=== PATIENT | male | born 1950 | race African-American/Black ===

== ENCOUNTER 2017-04-01 09:09 | Emergency (ER) | payer OTHER ==
[~2017-04-01] VITALS: Ht 170.2 cm; Wt 96.0 kg
[2017-04-01] MEDS ORDERED: IPRATROPIUM BROMIDE (0.02%) 0.5MG/2.5ML NEB HHN STA (09:57)
[2017-04-01] MEDS ORDERED: ALBUTEROL (0.083%) 2.5MG/3ML NEB HHN STA (09:57)
[2017-04-01] MEDS ORDERED: METHYLPREDNISOLONE SOD SUCC 125 MG/2 ML VIAL IV STA (09:57)
[2017-04-01 10:25] LABS: BASOPHILS % 0.5 % (0.0-2.0); EOSINOPHILS % 3.6 % (0.0-5.0); HEMATOCRIT. 37.9 % (42.0-52.0); HEMOGLOBIN. 12.6 g/dL (14.0-18.0); LYMPHOCYTES % 11.6 % (20.0-50.0); MEAN CORPUSCULAR VOLUME 90.2 fL (80.0-94.0); MEAN PLATELET VOLUME 6.7 fl (7.4-10.4); MONOCYTES % 8.8 % (2.0-8.0); NEUTROPHILS % 75.5 % (40.0-76.0); PLATELET 229 x1000/uL (130-400)
[2017-04-01 10:45] LABS: CARBON DIOXIDE 28 mEq/L (21-32); CHLORIDE 105 mEq/L (98-107); TROPONIN I < 0.02 ng/mL (0.00-0.04)
[2017-04-01 12:07] VITALS: BP 133/74
== END 2017-04-01 12:11 | disposition home or self-care (01) ==
LOC: ER 09:30
DX: J44.1 Chronic obstructive pulmonary disease with (acute) exacerbation (principal); I10 Essential (primary) hypertension; E11.9 Type 2 diabetes mellitus without complications
CPT/HCPCS: 36415; 71045; 80053; 83605; 83880; 84484; 85025; 94644; 94645; 96374; 99285; J2930; J7611

== ENCOUNTER 2017-09-16 04:10 | Inpatient (IN) | payer OTHER ==
[~2017-09-16] VITALS: Ht 182.9 cm; Wt 112.9 kg
[2017-09-16] MEDS ORDERED: ALBUTEROL (0.083%) 2.5MG/3ML NEB HHN STA (04:58)
[2017-09-16] MEDS ORDERED: METHYLPREDNISOLONE SOD SUCC 125 MG/2 ML VIAL IV STA (04:58)
[2017-09-16] MEDS ORDERED: IPRATROPIUM BROMIDE (0.02%) 0.5MG/2.5ML NEB HHN STA (04:58)
[2017-09-16] MEDS ORDERED: MAGNESIUM 2 G PREMIX 50 ML IV ONE (05:00)
[2017-09-16] MEDS ORDERED: AZITHROMYCIN 500 MG in DEXT 5% WATER 250 ML IV ONE (05:00)
[2017-09-16] MEDS ORDERED: CEFTRIAXONE 1 G PREMIX 50 ML IV ONE (05:00)
[2017-09-16] MEDS ORDERED: IPRATROPIUM BROMIDE (0.02%) 0.5MG/2.5ML NEB ONE (05:09)
[2017-09-16] MEDS ORDERED: ALBUTEROL (0.083%) 2.5MG/3ML NEB ONE (05:09)
[2017-09-16 05:39] LABS: BASOPHILS % 0.4 % (0.0-2.0); EOSINOPHILS % 0.1 % (0.0-5.0); HEMATOCRIT. 40.4 % (42.0-52.0); HEMOGLOBIN. 13.5 g/dL (14.0-18.0); LYMPHOCYTES % 10.1 % (20.0-50.0); MEAN CORPUSCULAR HEMOGLOBIN 29.4 pg (28.0-32.0); MEAN CORPUSCULAR VOLUME 88.1 fL (80.0-94.0); MEAN PLATELET VOLUME 7.3 fl (7.4-10.4); NEUTROPHILS % 76.4 % (40.0-76.0); PLATELET 193 x1000/uL (130-400); RED BLOOD CELL COUNT 4.59 mill/uL (4.7-6.1); RED CELL DISTRIBUTION WIDTH 14.5 % (11.6-14.6)
[2017-09-16 05:46] LABS: CHLORIDE 104 mEq/L (98-107)
[2017-09-16 05:58] LABS: BG CARBOXYHEMOGLOBIN 0.9 % (0.5-1.5); BG DEOXYHEMOGLOBIN 0.6 % (0.0-5.0); BG FRACTION INSPIRED OXYGEN 60; BG HCO3 ACT 25.6 mmol/L (22.0-26.0); BG METHEMOGLOBIN 0.2 % (0.0-1.5); BG OXYGEN SATURATION 99.4 % (92.0-98.5); BG OXYHEMOGLOBIN 98.3 % (94.0-97.0); BG PCO2 45.3 mmHg (35.0-45.0); BG PO2 174.4 mmHg (75.0-100.0); BG SAMPLE SITE RIGHT RADIAL; BG TOTAL HEMOGLOBIN 13.8 g/dL (12.0-18.0)
[2017-09-16] MEDS ORDERED: SODIUM CHLORIDE 0.9% 1,000 ML IV SCH (06:23)
[2017-09-16] MEDS ORDERED: CLONIDINE 0.1MG TABLET PO PRN (08:30)
[2017-09-16] MEDS ORDERED: DIPHENHYDRAMINE 50MG/ML VIAL IV PRN (08:30)
[2017-09-16] MEDS ORDERED: ACETAMINOPHEN 325MG TABLET PO PRN (08:30)
[2017-09-16] MEDS ORDERED: LORAZEPAM 0.5MG TABLET PO PRN (08:30)
[2017-09-16] MEDS ORDERED: IPRATROPIUM/ALBUTEROL 0.5-3(2.5)MG/3ML NEB INH PRN (08:30)
[2017-09-16] MEDS ORDERED: NA PHOS,M-B/NA PHOS,DI-BA ENEMA 118ML PR PRN (08:30)
[2017-09-16] MEDS ORDERED: ONDANSETRON HCL 4MG/2ML VIAL IV PRN (08:30)
[2017-09-16] MEDS ORDERED: DOCUSATE SODIUM 100MG CAPSULE PO PRN (08:30)
[2017-09-16] MEDS ORDERED: GUAIFENESIN 200MG/10ML SUGAR FREE UDC PO PRN (08:30)
[2017-09-16] MEDS ORDERED: NITROGLYCERIN 0.4MG TABLET SL SL PRN (08:30)
[2017-09-16] MEDS ORDERED: MAGNESIUM/ALUMINUM HYDROXIDE/SIMETHICONE 30ML UDC PO PRN (08:30)
[2017-09-16] MEDS ORDERED: TRAMADOL 50MG TABLET PO PRN (08:30)
[2017-09-16] MEDS ORDERED: ENOXAPARIN 40MG/0.4ML SYR SUBCUT SCH (09:00)
[2017-09-16] MEDS ORDERED: LEVOFLOXACIN 500MG PREMIX 100 ML IV SCH (10:00)
[2017-09-16 10:10] VITALS: BP 146/78
[2017-09-16] MEDS: FAMOTIDINE 20MG TABLET PO SCH ×2 (11:30→21:47)
[2017-09-16] MEDS: DILTIAZEM HCL 30MG TABLET PO SCH ×3 (11:30→21:48)
[2017-09-16] MEDS: GUAIFENESIN 600MG ER TABLET PO SCH ×2 (11:30→21:47)
[2017-09-16] MEDS: ASPIRIN 325MG EC TABLET PO SCH (11:31)
[2017-09-16] MEDS: IPRATROPIUM/ALBUTEROL 0.5-3(2.5)MG/3ML NEB HHN SCH ×3 (12:47→22:25)
[2017-09-16] MEDS: LEVOFLOXACIN 500MG PREMIX 100 ML IV SCH (13:54)
[2017-09-16] MEDS: METHYLPREDNISOLONE SOD SUCC 125 MG/2 ML VIAL IV SCH ×2 (13:54→21:49)
[2017-09-16 15:12] LABS: CREATINE KINASE 292 IU/L (39-308)
[2017-09-16 15:13] LABS: CREATINE KINASE MB FRACTION 4.9 ng/mL (0.5-3.6)
[2017-09-16 16:00] VITALS: BP 144/86
[2017-09-16] MEDS: BLOOD SUGAR DIAGNOSTIC STRIP TEST SCH ×2 (16:45→21:49)
[2017-09-16] MEDS ORDERED: DEXTROSE 50% WATER 50ML SYRINGE IV PRN (16:45)
[2017-09-16] MEDS: INSULIN LISPRO 100 UNITS/ML SUBCUT SCH ×2 (18:14→21:53)
[2017-09-16 20:00] VITALS: BP 162/88
[2017-09-16] MEDS ORDERED: ZOLPIDEM TARTRATE 5MG TABLET PO PRN (21:00)
[2017-09-16] MEDS: ENOXAPARIN 30MG/0.3ML SYR SUBCUT SCH (21:56)
[2017-09-16 23:06] LABS: METHADONE URINE SCREEN NEGATIVE (NEGATIVE)
[2017-09-16 23:07] LABS: *AMPHETAMINES SCREEN URINE NEGATIVE (NEGATIVE); *BARBITURATES SCREEN URINE NEGATIVE (NEGATIVE); *BENZODIAZEPINES SCREEN URINE NEGATIVE (NEGATIVE); *COCAINE SCREEN URINE NEGATIVE (NEGATIVE); CANNABINOID URINE SCREEN NEGATIVE (NEGATIVE); OPIATES URINE SCREEN PRESUMTIVE POSITIVE (NEGATIVE); PHENCYCLIDINE URINE SCREEN NEGATIVE (NEGATIVE)
[2017-09-16 23:34] LABS: CREATINE KINASE 302 IU/L (39-308)
[2017-09-16 23:35] LABS: CREATINE KINASE MB FRACTION 5.7 ng/mL (0.5-3.6)
[2017-09-17] VITALS (7 sets, daily range): BP systolic 120–147; BP diastolic 74–86
[2017-09-17] MEDS: IPRATROPIUM/ALBUTEROL 0.5-3(2.5)MG/3ML NEB HHN SCH ×6 (00:24→20:34)
[2017-09-17] MEDS: METHYLPREDNISOLONE SOD SUCC 125 MG/2 ML VIAL IV SCH ×2 (07:00→13:34)
[2017-09-17] MEDS: BLOOD SUGAR DIAGNOSTIC STRIP TEST SCH ×3 (07:00→17:18)
[2017-09-17] MEDS: INSULIN LISPRO 100 UNITS/ML SUBCUT SCH ×3 (07:00→17:23)
[2017-09-17] MEDS: DILTIAZEM HCL 30MG TABLET PO SCH ×2 (07:01→13:34)
[2017-09-17] MEDS: FAMOTIDINE 20MG TABLET PO SCH (08:21)
[2017-09-17] MEDS: GUAIFENESIN 600MG ER TABLET PO SCH (08:21)
[2017-09-17] MEDS: ASPIRIN 325MG EC TABLET PO SCH (08:21)
[2017-09-17] MEDS: ENOXAPARIN 30MG/0.3ML SYR SUBCUT SCH (08:22)
[2017-09-17] MEDS ORDERED: ENOXAPARIN 80MG/0.8ML SYR SUBCUT NR (13:15)
[2017-09-17] MEDS: LEVOFLOXACIN 500MG PREMIX 100 ML IV SCH (13:34)
[2017-09-17] MEDS ORDERED: ENOXAPARIN 100MG/ML SYR SUBCUT SCH ×2 (21:00→22:00)
== END 2017-09-17 21:18 | disposition short-term general hospital (02) | DRG 189 ==
LOC: ER 04:10 → 6WST 04:11 → EDBEDREQ 06:24 → EDBEDREQTM 06:36 → ENRESERV 07:31 → 5WST 09:34
PROVIDERS: ADMIT Internal Medicine; ATTEND Internal Medicine
DX: J96.00 Acute respiratory failure, unspecified whether with hypoxia or hypercapnia (principal); J44.1 Chronic obstructive pulmonary disease with (acute) exacerbation; E66.9 Obesity, unspecified; K21.9 Gastro-esophageal reflux disease without esophagitis; D64.9 Anemia, unspecified; E11.9 Type 2 diabetes mellitus without complications; Z68.33 Body mass index [BMI] 33.0-33.9, adult
CPT/HCPCS: 36415; 36600; 71045; 80053; 80061; 80305; 82375; 82550; 82553; 82805; 82962; 83036; 83605; 83880; 84484; 85025; 85379; 87040; 93005; 93306; 93970; 94640; 94644; 96365; 96366; 96367; 96368; 96375; 99291; J0456; J0696; J1650; J1815; J1956; J2930; J3475; J7030; J7050; J7060; J7611; J7620

== ENCOUNTER 2017-09-22 09:51 | Emergency (ER) | payer OTHER ==
[~2017-09-22] VITALS: Ht 182.9 cm; Wt 125.0 kg
[2017-09-22] MEDS ORDERED: IPRATROPIUM BROMIDE (0.02%) 0.5MG/2.5ML NEB HHN STA (10:11)
[2017-09-22] MEDS ORDERED: ALBUTEROL (0.083%) 2.5MG/3ML NEB HHN ONE (10:15)
[2017-09-22 11:55] VITALS: BP 139/78
== END 2017-09-22 12:30 | disposition home or self-care (01) ==
LOC: ER 09:51
DX: J44.1 Chronic obstructive pulmonary disease with (acute) exacerbation (principal); E11.9 Type 2 diabetes mellitus without complications; Z87.01 Personal history of pneumonia (recurrent)
CPT/HCPCS: 71045; 82962; 94640; 99283; J7611; Z7610

== ENCOUNTER 2018-04-17 14:11 | Emergency (ER) | payer OTHER ==
[~2018-04-17] VITALS: Ht 182.9 cm; Wt 113.0 kg
[2018-04-17] MEDS ORDERED: SODIUM CHLORIDE 0.9% 1,000 ML IV ONE (15:25)
[2018-04-17] MEDS ORDERED: FAMOTIDINE 20MG/2ML VIAL IV STA (15:25)
[2018-04-17] MEDS ORDERED: MAGNESIUM/ALUMINUM HYDROXIDE/SIMETHICONE 30ML UDC PO STA (15:25)
[2018-04-17] MEDS ORDERED: VISCOUS LIDOCAINE 2% 15 ML UDC PO STA (15:25)
[2018-04-17] MEDS ORDERED: ONDANSETRON HCL 4MG/2ML INJ IV STA (15:25)
[2018-04-17 16:28] LABS: CHLORIDE 106 mEq/L (98-107)
[2018-04-17 16:30] LABS: INR 1.1; PROTHROMBIN TIME 10.7 sec (9.1-11.1)
[2018-04-17 16:31] LABS: BASOPHILS % 0.5 % (0.0-2.0); EOSINOPHILS % 2.8 % (0.0-5.0); HEMATOCRIT. 42.7 % (42.0-52.0); HEMOGLOBIN. 13.9 g/dL (14.0-18.0); LYMPHOCYTES % 13.7 % (20.0-50.0); MEAN CORPUSCULAR HEMOGLOBIN 29.6 pg (28.0-32.0); MEAN CORPUSCULAR VOLUME 90.7 fL (80.0-94.0); MEAN PLATELET VOLUME 7.6 fl (7.4-10.4); MONOCYTES % 7.5 % (2.0-8.0); NEUTROPHILS % 75.5 % (40.0-76.0); PLATELET 210 x1000/uL (130-400); RED CELL DISTRIBUTION WIDTH 14.5 % (11.6-14.6)
[2018-04-17] MEDS ORDERED: SORBITOL 70% SOLN 30ML PO ONE (19:00)
[2018-04-17 21:43] VITALS: BP 151/92
== END 2018-04-17 21:49 | disposition home or self-care (01) ==
LOC: ER 14:11
DX: K59.00 Constipation, unspecified (principal); K21.9 Gastro-esophageal reflux disease without esophagitis; J44.9 Chronic obstructive pulmonary disease, unspecified; E11.9 Type 2 diabetes mellitus without complications; Z98.890 Other specified postprocedural states
CPT/HCPCS: 36415; 74176; 80053; 82962; 83690; 83880; 84484; 85025; 85610; 96374; 96375; 99284; J2405; J3490; J7030; Z7610

== ENCOUNTER 2019-02-06 23:21 | Emergency (ER) | payer OTHER ==
[~2019-02-06] VITALS: Ht 182.9 cm; Wt 113.0 kg
[2019-02-07] MEDS ORDERED: PREDNISONE 20MG TABLET PO STA (00:25)
[2019-02-07] MEDS ORDERED: IPRATROPIUM/ALBUTEROL 0.5-3(2.5)MG/3ML NEB HHN ONE (00:30)
[2019-02-07] MEDS ORDERED: LEVOFLOXACIN 500MG TABLET PO ONE (00:30)
[2019-02-07 01:03] LABS: CHLORIDE 106 mEq/L (98-107)
[2019-02-07 01:05] LABS: BASOPHILS % 0.7 % (0.0-2.0); EOSINOPHILS % 3.4 % (0.0-5.0); HEMATOCRIT. 40.1 % (42.0-52.0); HEMOGLOBIN. 13.3 g/dL (14.0-18.0); LYMPHOCYTES % 15.4 % (20.0-50.0); MEAN CORPUSCULAR HEMOGLOBIN 30.2 pg (28.0-32.0); MEAN PLATELET VOLUME 7.2 fl (7.4-10.4); MONOCYTES % 8.4 % (2.0-8.0); NEUTROPHILS % 72.1 % (40.0-76.0); PLATELET 191 x1000/uL (130-400); RED BLOOD CELL COUNT 4.41 mill/uL (4.7-6.1); RED CELL DISTRIBUTION WIDTH 13.8 % (11.6-14.6)
[2019-02-07 02:35] VITALS: BP 125/83
== END 2019-02-07 02:39 | disposition home or self-care (01) ==
LOC: ER 23:21
DX: J44.1 Chronic obstructive pulmonary disease with (acute) exacerbation (principal); Z98.890 Other specified postprocedural states
CPT/HCPCS: 36415; 71045; 80053; 83880; 84484; 85025; 94640; 99284; J7512; J7620; Z7610

== ENCOUNTER 2019-02-26 03:09 | Emergency (ER) | payer OTHER ==
[~2019-02-26] VITALS: Ht 175.3 cm; Wt 87.0 kg
[2019-02-26] MEDS ORDERED: IPRATROPIUM BROMIDE (0.02%) 0.5MG/2.5ML NEB HHN ONE ×2 (06:30→09:45)
[2019-02-26] MEDS ORDERED: METHYLPREDNISOLONE SOD SUCC 125 MG/2 ML VIAL IM ONE (06:30)
[2019-02-26] MEDS ORDERED: ALBUTEROL (0.083%) 2.5MG/3ML NEB HHN ONE ×2 (06:30→09:45)
[2019-02-26 12:06] VITALS: BP 135/88
== END 2019-02-26 12:07 | disposition home or self-care (01) ==
LOC: ER 03:09
DX: J44.1 Chronic obstructive pulmonary disease with (acute) exacerbation (principal)
CPT/HCPCS: 71045; 96372; 99284; J2930; J7611

== ENCOUNTER 2019-03-07 14:36 | Emergency (ER) | payer OTHER ==
[~2019-03-07] VITALS: Ht 182.9 cm; Wt 101.0 kg
[2019-03-07] MEDS ORDERED: METHYLPREDNISOLONE SOD SUCC 125 MG/2 ML VIAL IV STA (15:49)
[2019-03-07] MEDS ORDERED: ALBUTEROL (0.083%) 2.5MG/3ML NEB HHN STA (15:49)
[2019-03-07] MEDS ORDERED: IPRATROPIUM BROMIDE (0.02%) 0.5MG/2.5ML NEB HHN STA (15:49)
[2019-03-07 16:22] LABS: BASOPHILS % 0.5 % (0.0-2.0); EOSINOPHILS % 4.3 % (0.0-5.0); HEMATOCRIT. 39.8 % (42.0-52.0); LYMPHOCYTES % 15.2 % (20.0-50.0); MEAN CORPUSCULAR HEMOGLOBIN 29.5 pg (28.0-32.0); MEAN CORPUSCULAR VOLUME 90.4 fL (80.0-94.0); MEAN PLATELET VOLUME 6.9 fl (7.4-10.4); MONOCYTES % 7.8 % (2.0-8.0); NEUTROPHILS % 72.2 % (40.0-76.0); PLATELET 180 x1000/uL (130-400); RED CELL DISTRIBUTION WIDTH 14.3 % (11.6-14.6)
[2019-03-07 16:28] LABS: CHLORIDE 106 mEq/L (98-107)
[2019-03-07 18:16] VITALS: BP 157/90
== END 2019-03-07 19:07 | disposition home or self-care (01) ==
LOC: ER 14:36 → CANBEDREQ 19:50
DX: J44.1 Chronic obstructive pulmonary disease with (acute) exacerbation (principal); J96.00 Acute respiratory failure, unspecified whether with hypoxia or hypercapnia; K59.00 Constipation, unspecified; E11.9 Type 2 diabetes mellitus without complications; I25.10 Atherosclerotic heart disease of native coronary artery without angina pectoris
CPT/HCPCS: 36415; 71045; 80053; 83880; 84484; 85025; 93005; 96374; 99284; J2930; J7611

== ENCOUNTER 2019-07-05 02:26 | Emergency (ER) | payer OTHER ==
[~2019-07-05] VITALS: Ht 188 cm; Wt 100.0 kg
[2019-07-05 03:02] VITALS: BP 146/73
== END 2019-07-05 05:32 | disposition home or self-care (01) ==
LOC: ER 02:58
DX: J45.909 Unspecified asthma, uncomplicated (principal); I11.9 Hypertensive heart disease without heart failure; I25.10 Atherosclerotic heart disease of native coronary artery without angina pectoris; K21.9 Gastro-esophageal reflux disease without esophagitis
CPT/HCPCS: 99283

== ENCOUNTER 2021-09-21 03:51 | Emergency (ER) | payer OTHER ==
[~2021-09-21] VITALS: Ht 177.8 cm; Wt 100.0 kg
[2021-09-21] MEDS ORDERED: FUROSEMIDE 40MG/4ML VIAL IVP ONE (05:00)
[2021-09-21] MEDS ORDERED: ALBUTEROL (0.083%) 2.5MG/3ML NEB HHN STA (05:20)
[2021-09-21] MEDS ORDERED: METHYLPREDNISOLONE SOD SUCC 125 MG/2 ML VIAL IV STA (05:20)
[2021-09-21] MEDS ORDERED: IPRATROPIUM BROMIDE (0.02%) 0.5MG/2.5ML NEB HHN STA (05:20)
[2021-09-21] MEDS ORDERED: MAGNESIUM 2 G PREMIX 50 ML IV STA (05:20)
[2021-09-21 05:24] LABS: BASOPHILS % 0.5 % (0.0-2.0); EOSINOPHILS % 4.2 % (0.0-5.0); HEMATOCRIT. 37.7 % (42.0-52.0); HEMOGLOBIN. 12.3 g/dL (14.0-18.0); LYMPHOCYTES % 9.7 % (20.0-50.0); MEAN CORPUSCULAR HEMOGLOBIN 30.3 pg (28.0-32.0); MEAN CORPUSCULAR VOLUME 93.1 fL (80.0-94.0); MEAN PLATELET VOLUME 7.6 fl (7.4-10.4); MONOCYTES % 6.7 % (2.0-8.0); NEUTROPHILS % 78.9 % (40.0-76.0); PLATELET 160 x1000/uL (130-400); RED BLOOD CELL COUNT 4.05 mill/uL (4.7-6.1); RED CELL DISTRIBUTION WIDTH 14.6 % (11.6-14.6)
[2021-09-21 05:33] LABS: CHLORIDE 103 mEq/L (98-107)
[2021-09-21] MEDS ORDERED: AZITHROMYCIN 500MG/250ML 250 ML IV ONE (06:00)
[2021-09-21] MEDS ORDERED: CEFTRIAXONE 1 G PREMIX 50 ML IV ONE (06:00)
[2021-09-21 10:05] VITALS: BP 139/86
== END 2021-09-21 11:16 | disposition short-term general hospital (02) ==
LOC: ER 03:57
DX: J18.9 Pneumonia, unspecified organism (principal); J44.9 Chronic obstructive pulmonary disease, unspecified; E78.00 Pure hypercholesterolemia, unspecified; I10 Essential (primary) hypertension; Z20.822 Contact with and (suspected) exposure to COVID-19
CPT/HCPCS: 36415; 71045; 80053; 83605; 83880; 84484; 85025; 85379; 87040; 87426; 93005; 94644; 96365; 96366; 96367; 96368; 96375; 99285; C9803; J0456; J0696; J1940; J2930; J3475; Z7610

== ENCOUNTER 2022-02-19 13:58 | Emergency (ER) | payer OTHER ==
[~2022-02-19] VITALS: Ht 185.4 cm; Wt 100.0 kg
[2022-02-19] MEDS: HYDROCODONE/ACETAMINOPHEN 10/325MG TABLET PO ONE (16:19)
[2022-02-19] MEDS: CYCLOBENZAPRINE 10MG TABLET PO ONE (16:19)
[2022-02-19] MEDS: KETOROLAC 60MG/2ML VIAL IM ONE (16:19)
[2022-02-19 17:38] LABS: HEMATOCRIT. 37.9 % (42.0-52.0); HEMOGLOBIN. 12.4 g/dL (14.0-18.0); MEAN CORPUSCULAR HEMOGLOBIN 29.9 pg (28.0-32.0); MEAN CORPUSCULAR VOLUME 91.4 fL (80.0-94.0); MEAN PLATELET VOLUME 7.1 fl (7.4-10.4); PLATELET 164 x1000/uL (130-400); RED BLOOD CELL COUNT 4.15 mill/uL (4.7-6.1); RED CELL DISTRIBUTION WIDTH 15.2 % (11.6-14.6)
[2022-02-19 17:51] LABS: CHLORIDE 107 mEq/L (98-107)
[2022-02-19 17:58] LABS: PLATELET ESTIMATE NORMAL
[2022-02-19] MEDS: FENTANYL CITRATE/PF 50MCG/ML 2ML VIAL IV ONE (19:45)
[2022-02-19] MEDS ORDERED: IBUP-2029 MT (22:46)
[2022-02-19] MEDS ORDERED: CYCL5TAB MT (22:46)
[2022-02-20] MEDS: VANCOMYCIN 1G PREMIX 200 ML IV SCH (02:55)
[2022-02-20 04:08] VITALS: BP 125/76
== END 2022-02-20 04:26 | disposition short-term general hospital (02) ==
LOC: ER 13:58 → CANBEDREQ 02-20 22:59
DX: M54.50 Low back pain, unspecified (principal); J45.909 Unspecified asthma, uncomplicated; E78.00 Pure hypercholesterolemia, unspecified; I10 Essential (primary) hypertension; Z20.822 Contact with and (suspected) exposure to COVID-19
CPT/HCPCS: 36415; 72131; 72148; 80048; 85025; 85651; 87426; 96365; 96372; 96375; 99285; C9803; J1885; J3010; J3370